=== PATIENT | male | born 1970 | race Caucasian/White ===

== ENCOUNTER 2025-07-24 08:44 | Emergency (ER) | payer OTHER, SELFPAY ==
[2025-07-24] VITALS (12 sets, daily range): BP systolic 128; BP diastolic 95; PULSE 77–99; TEMP 36.5; O2SAT 96–100; BMI 28.7
--- NOTE | 2025-07-24 09:03 | ED_ITS ---
HPI HPI - General Adult General Chief complaint: Allergic Reaction Stated complaint: rash Time Seen by Provider: 07/24/25 08:50 Source: patient Mode of arrival: walk-in Limitations: no limitations History of Present Illness HPI narrative: Patient is a 54-year-old male who is presenting to the ER today with chief complaint of diffuse rash to his abdomen, back, face, arms, legs with some lip sensation that lips are swelling. Patient had coffee this morning, patient is taking antibiotic minocycline that he has used in the past for facial/scalp folliculitis. Patient gets folliculitis when he shaves his head. Patient took folliculitis for a week, a week ago which helped cleared up his folliculitis. Patient took 1 tablet this morning. Patient has no other exposure to chemicals, soaps, shampoos. Patient works, no new chemical exposure. No new animals at home. No other acute complaints. Patient has no significant tongue swelling, lip swelling. Patient is at bedside. Patient has no chest pain, no chest tightness. No recent traveling, no new other substance or exposure or anything new to drink, medications. Unless otherwise stated in this report or unable to obtain because of the patient's clinical or mental status as evidenced by medical record, the patient's positive and negative responses for review of systems for constitutional, eyes, ENT, cardiovascular, respiratory, gastrointestinal, neurological, , musculoskeletal, and integument systems and related systems to the presenting problem are either stated in the history of present illness or were not pertinent or were negative for the symptoms and/or complaints related to the presenting medical problem. Nurses note and vital signs reviewed and patient is not hypoxic. General: The patient appears well and in no apparent distress. Patient is resting comfortably on cart. Patient is not toxic, lethargic, or listless Skin: Warm, dry, no pallor noted. There is no rash noted. No petechiae, purpura. Patient has diffuse hives to arms, trunk, back, legs, forehead, face. Patient does not have any appreciable angioedema or significant swelling to lips or tongue. No petechia or purpura, no mucous membrane involvement. No petechiae or purpura, no mucous membrane involvement. Head: Normocephalic, atraumatic Eye: Normal conjunctiva, no drainage, EOMI. PERRL Ears, Nose, Mouth, and Throat: oral mucosa is moist. Nares patent. Mouth without vesicles. No angioedema. Patient does have slightly enlarged uvula, patient states he has had this for a long time, this is chronic, patient has sleep apnea as well. Cardiovascular: Regular Rate and Rhythm, no murmur, gallop, rub Respiratory: Patient is in no distress, no accessory muscle use, lungs are clear to auscultation, no wheezing, rales or rhonchi Back: non-tender, no CVA tenderness bilaterally to percussion. No CT LS midline pain GI: no tenderness to palpation, no masses appreciated. No rebound, guarding, or rigidity noted. No distention Musculoskeletal: Patient has full range of motion of all of the extremities, no motor, sensory, or focal neurological deficits Neurological: A&O x4, normal speech Psychiatric: Cooperative Related Data Previous Rx's ?Medication ?Instructions ?Recorded prednisone 20 mg tablet 20 mg PO BID 3 days #6 tabs 07/24/25 Allergies Allergy/AdvReac Type Severity Reaction Status Date / Time No Known Drug Allergies Allergy Verified 07/24/25 08:47 PFSH PFSH Social History Little interest or pleasure in doing things: not at all Feeling down, depressed, or hopeless: not at all Exam Constitutional Vital Signs, click to edit/add: Last Vital Signs Temp 97.7 F 07/24/25 08:48 Pulse 78 07/24/25 10:30 Resp 14 07/24/25 10:30 BP 128/95 H 07/24/25 08:48 Pulse Ox 96 07/24/25 10:30 O2 Del Method Room Air 07/24/25 08:48 Course Vital Signs Vital signs: Vital Signs Temperature 97.7 F 07/24/25 08:48 Pulse Rate 99 H 07/24/25 08:48 Respiratory Rate 18 07/24/25 08:48 Blood Pressure 128/95 H 07/24/25 08:48 Pulse Oximetry 100 07/24/25 08:48 Oxygen Delivery Method Room Air 07/24/25 08:48 Temperature 97.7 F 07/24/25 08:48 Pulse Rate 78 07/24/25 10:30 Respiratory Rate 14 07/24/25 10:30 Blood Pressure 128/95 H 07/24/25 08:48 Pulse Oximetry 96 07/24/25 10:30 Oxygen Delivery Method Room Air 07/24/25 08:48 Medical Decision Making [facility] Narrative Medical decision making narrative: Patient seen and examined: Patient will be given EpiPen, IV Solu-Medrol, Pepcid, Benadryl, IV fluids, patient monitor for 2 hours Differential diagnosis includes but is not limited to: Allergic reaction, anaphylactic reaction, rash, nonspecific rash, Relevant laboratory interpretation: Reevaluation: Patient was observed for 2 hours. 1011 patient no longer had any type of redness, rash, patient had no sensation of lip or tongue swelling. Patient was observed for the 2-hour total after epinephrine was given. Patient had no rebound or secondary reaction. Social barriers to healthcare: There are no food insecurities, there is no issue with transportation, there are no insurance barriers. Disposition: Patient was sent home with a prescription for prednisone to use for another 3 days, starting tomorrow. Patient was educated on using Pepcid and antihistamines. Patient will continue to increase fluids. No questions at discharge. Patient was observed for 2 hours, patient has remained on the patient monitor for 2 hours. Allergic reaction and anaphylactic reaction were discussed with patient and at length several different times of several different evaluations of the patient. Critical care time 31 minutes exclusive from separate billable procedures that were performed. The following was considered in the determination of critical care but not limited to the level of medical decision making, intensive cardiac and/or respiratory monitoring, frequent vital sign monitoring, evaluation of laboratory studies, evaluation of radiographic studies, oxygen monitoring, and constant monitoring and speaking to family at bedside Lab Data Labs: Lab Results 07/24/25 Range/Units 08:57 WBC 5.6 (4.0-11.0) 10^3/uL RBC 6.10 (4.70-6.10) 10^6/uL Hgb 19.3 H (14.0-18.0) g/dL Hct 55.4 H (42.0-54.0) % MCV 90.8 (80.0-94.0) fL MCH 31.6 (25.9-34.0) pg MCHC 34.8 (29.9-35.2) g/dL RDW 11.9 (11.0-15.0) % Plt Count 227 (150-450) 10^3/uL MPV 10.1 (9.5-13.5) fL Neut % (Auto) 54.7 (43.0-75.0) % Lymph % (Auto) 34.2 (20.5-60.0) % [place] % (Auto) 10.0 (1.7-12.0) % Eos % (Auto) 0.9 (0.9-7.0) % Baso % (Auto) 0.0 L (0.2-2.0) % Neut # (Auto) 3.1 (1.4-6.5) 10^3/uL Lymph # (Auto) 1.9 (1.2-3.8) 10^3/uL [place] # (Auto) 0.6 (0.3-0.8) 10^3/uL Eos # (Auto) 0.1 (0.0-0.7) 10^3/uL Baso # (Auto) 0.0 (0.0-0.1) 10^3/uL Abs Immat Gran (auto) 0.01 (0.00-0.03) 10^3/uL Imm/Tot Granulo (auto) 0.2 (0.0-0.5) % Sodium 140 (136-145) mmol/L Potassium 4.2 (3.5-5.1) mmol/L Chloride 102 (98-107) mmol/L Carbon Dioxide 29.1 (21.0-32.0) mmol/L Anion Gap 13.1 BUN 12.0 (7.0-18.0) mg/dL Creatinine 1.03 (0.70-1.30) mg/dL Est GFR ( Amer) >60 (>=60 mL/min/1.73m^2) Est GFR (Non-Af Amer) >60 (>=60 mL/min/1.73m^2) BUN/Creatinine Ratio 11.7 Glucose 118 H (74-106) mg/dL Calcium 9.3 (8.5-10.1) mg/dL Discharge Plan Discharge Chief Complaint: Allergic Reaction Clinical Impression: Anaphylaxis, Allergic reaction Patient Disposition: Home, Self-Care Time of Disposition Decision: 11:24 Condition: Fair Mode of Transportation: Private Vehicle Prescriptions / Home Meds: New prednisone 20 mg tablet 20 mg PO BID 3 Days Qty: 6 0RF Print Language: Hungarian Instructions: General Allergic Reaction (ED) Additional Instructions: Use Pepcid twice a day for the next 3 to 5 days, take your next dose this evening. Use Claritin or Zyrtec twice a day for the next 3 to 5 days, take your next dose this evening. Take your next dose of prednisone tomorrow. If you are having 2 systems involved with any type of allergic reaction as discussed several times at bedside, please return back to the ER for further evaluation. Follow-up with PCP Referrals: CHER KIRKPATRICK [Family Provider, Internal Medicine] - 1 week Discharge Date/Time: 07/24/25 11:34
[2025-07-24] MEDS: FAMOTIDINE/PF 20 MG/2 ML VIAL IV (09:11)
[2025-07-24] MEDS: METHYLPREDNISOLONE SOD SUCC PF 125 MG/2 ML VIAL IVP (09:11)
[2025-07-24] MEDS: 0.9 % SODIUM CHLORIDE 1,000 ML 1000 ML IV (09:11)
[2025-07-24] MEDS: DIPHENHYDRAMINE HCL 50 MG/ML VIAL IVP (09:11)
[2025-07-24 09:12] LABS: Hematocrit 55.4 % (42.0-54.0); Hemoglobin 19.3 g/dL (14.0-18.0); Immature Granulocytes Abs Auto 0.01 10^3/uL (0.00-0.03); Immature Granulocytes Pct Auto 0.2 % (0.0-0.5); Lymphocytes Absolute Auto 1.9 10^3/uL (1.2-3.8); Mean Corpuscular HGB Conc 34.8 g/dL (29.9-35.2); Mean Corpuscular Hemoglobin 31.6 pg (25.9-34.0); Mean Corpuscular Volume 90.8 fL (80.0-94.0); Platelet Count 227 10^3/uL (150-450); Red Blood Count 6.10 10^6/uL (4.70-6.10); White Blood Count 5.6 10^3/uL (4.0-11.0)
[2025-07-24 09:17] LABS: Anion Gap 13.1; Blood Urea Nitrogen 12.0 mg/dL (7.0-18.0); Calcium 9.3 mg/dL (8.5-10.1); Carbon Dioxide 29.1 mmol/L (21.0-32.0); Chloride 102 mmol/L (98-107); Estimated GFR (African America >60 (>=60 mL/min/1.73m^2); Estimated GFR (Non-African Ame >60 (>=60 mL/min/1.73m^2); Glucose 118 mg/dL (74-106); Potassium 4.2 mmol/L (3.5-5.1); Sodium 140 mmol/L (136-145)
== END 2025-07-24 11:34 | disposition home or self-care (01) ==
PROVIDERS: Emergency Provider Emergency Medicine; Family Provider Internal Medicine; PCP Family Medicine
DX: T78.2XXA Anaphylactic shock, unspecified, initial encounter (principal); T78.40XA Allergy, unspecified, initial encounter
CPT/HCPCS: 36415; 80048; 85025; 96372; 96374; 96375; 99284; J0169; J1200; J2919; J3490